=== PATIENT | female | born 1965 | race Caucasian/White ===

== ENCOUNTER → 2017-10-31 | Outpatient (CLI) | payer OTHER ==
[~2017-10-31] MED LIST: CELE-1 PO; ESTR1PAT18 TD; SIMV10TA96 PO
--- NOTE | 2017-10-31 15:14 | RADIOLOGY IMAGING REPORT ---
FACILITY: [facility] PATIENT NAME: SHARON SOLORZANO : [id number] MR: [id number] V: [id number] EXAM DATE: [id number] ORDERING PHYSICIAN: JUANIS DELACRUZ TECHNOLOGIST: Stephanie Benson PROCEDURE:BILATERAL DIGITAL SCREENING MAMMOGRAM WITH CAD ASSISTED INTERPRETATION & 3D TOMOSYNTHESIS COMPARISON:Prior mammograms 01/25/16, 08/19/12, 07/23/12. INDICATIONS:SCREENING FINDINGS: A moderate amount of fibroglandular tissue is seen throughout the breasts. The parenchymal pattern has remained stable allowing for difference in mammographic technique & patient positioning. There is no evidence of malignant appearing mass, malignant appearing calcifications or other secondary sign of malignancy in either breast. DIAGNOSTIC CATEGORY 1--NEGATIVE. RECOMMENDATIONS: ROUTINE MAMMOGRAM AND CLINICAL EVALUATION. IMPRESSION: BIRADS 1: Negative No significant abnormality is seen. Dictated by: Dee Moya M.D. on 10/31/2017 at 14:41 Transcribed by: CAROLEE on 10/31/2017 at 14:46 Approved by: Dee Moya M.D. on 10/31/2017 at 15:13 [facility]
== END ==
LOC: MAMO 03:52
PROVIDERS: ATTEND Obstetrics & Gynecology
DX: Z12.31 Encounter for screening mammogram for malignant neoplasm of breast (principal)
CPT/HCPCS: 77063; 77067

== ENCOUNTER → 2017-11-12 | Outpatient (CLI) | payer OTHER ==
--- NOTE | 2017-11-12 13:43 | RADIOLOGY IMAGING REPORT ---
[place] [facility] [place] Priscila Chiu : 1965 MR: [id number] V: [id number] EXAM DATE: ORDERING PHYSICIAN: RUFINA CUEVAS TECHNOLOGIST: Location: [facility] Patient: Priscila Chiu : 1965 Visit/Account:[id number] Date of Sevice: 11/12/2017 Exam type: VENOUS DOPP LOW RIGHT EXTREMIT History: Right leg pain and swelling Comparison: None. Findings: The right lower extremity veins were imaged including the right common femoral vein, greater saphenou s vein, superficial femoral vein, popliteal vein, posterior tibial vein anterior tibial vein and bam paras veins revealing no evidence of intraluminal thrombi. The veins were compressible and demonstrat ed augmentation IMPRESSION: 1. No sonographic evidence DVT involving the right lower extremity veins Report Dictated By: Dee Moya MD at 11/12/2017 1:37 PM Report E-Signed By: Dee Moya MD at 11/12/2017 1:38 PM WSN:[email or web address]
== END ==
LOC: US 07:17
PROVIDERS: ATTEND Family Medicine
DX: M25.561 Pain in right knee (principal); M25.461 Effusion, right knee

== ENCOUNTER 2018-05-20 02:00 | Outpatient (RCR) | payer OTHER ==
--- NOTE | 2018-05-20 08:50 | RADIOLOGY IMAGING REPORT ---
FACILITY: [facility] PATIENT NAME: Priscila Chiu : 1965 MR: [id number] V: [id number] EXAM DATE: ORDERING PHYSICIAN: RUFINA CUEVAS TECHNOLOGIST: Location: [facility] Patient: Priscila Chiu : 1965 Visit/Account:[id number] Date of Sevice: 05/20/2018 GALLBLADDER HISTORY: Epigastric pain. Nausea and vomiting. ADDITIONAL HISTORY: None. COMPARISON: None. FINDINGS: Liver: Negative. Gallbladder: There is a small amount of bright dependent sludge in gallbladder. No stones are identi fied. Negative sonographic Valdez's sign. Gallbladder wall normal measuring 2.4 mm thick. Common duct: 3.1 mm diameter. Pancreas: Partially obscured by bowel, visualized aspects unremarkable. Right kidney: Negative. Upper abdominal aorta and IVC: Patent. Ascites: None visualized. IMPRESSION: Minimal gallbladder sludge. No evidence of gallstones. Exam otherwise unremarkable. Report Dictated By: Donnie Sheehan MD at 05/20/2018 8:37 AM Report E-Signed By: Donnie Sheehan MD at 05/20/2018 8:46 AM WSN:[id number]
== END 2018-05-20 18:00 | disposition home or self-care (01) ==
LOC: US 02:00 → EDSTATUS 14:52 → US 18:00
PROVIDERS: ATTEND Family Medicine
DX: R10.13 Epigastric pain (principal); R10.11 Right upper quadrant pain; R11.0 Nausea
CPT/HCPCS: 76705

== ENCOUNTER → 2018-05-26 | Outpatient (CLI) | payer OTHER ==
[~2018-05-26] MED LIST changes: +SINCALIDE 5 MCG VIAL INJ ONE; +WATER FOR INJ,STERILE 20 ML 20 ML ONE
--- NOTE | 2018-05-26 15:15 | RADIOLOGY IMAGING REPORT ---
FACILITY: [facility] PATIENT NAME: Priscila Chiu : 1965 MR: [id number] V: [id number] EXAM DATE: ORDERING PHYSICIAN: RUFINA CUEVAS TECHNOLOGIST: [place] [facility] [place] : 1965 Visit/Account:[id number] Date of Sevice: 05/26/2018 HIDA W/CCK COMPARISON: 05/20/2018 gallbladder ultrasound HISTORY: Right upper quadrant pain with nausea. Gallbladder sludge on previous ultrasound. Epigast hali and right upper quadrant pain.. TECHNIQUE: 5.7 mCi Tc99m Mebrofenin was injected intravenously. Multiple sequential gamma camera aquiles ges of the abdomen were obtained for 60 minutes. At that time, 3.2 mcg Kinevac was injected intraveno usly and an additional 30 minutes of gamma camera imaging data was acquired. A computer-generated reg ion of interest was placed around the gallbladder and time-activity curve for the gallbladder was vick ived. The gallbladder ejection fraction was calculated. FINDINGS: Liver uptake and excretion: There is prompt liver uptake and there is overall slow/delayed hepatic c learance, with some residual parenchymal uptake noted at the end of the first hour and with residual blood pool activity indicative of delayed blood pool clearance. These findings can be seen with gene ralized hepatocellular dysfunction. Time to appearance: Bile ducts: 8 minutes. Gallbladder: 33 minutes. Duodenum: 80 minutes. Duodenal- gastric reflux / extravasation: none Post IV Kinevac: There is normal prompt contraction of the gallbladder Ejection fraction = 59 %, (normal > 35%). Patient symptoms: Nausea with CCK analog administration IMPRESSION: 1. There is delayed clearance of tracer from the blood pool which can be seen in the setting of gene ralized hepatic dysfunction. 2. Otherwise unremarkable study. The cystic and common ducts are patent. The gallbladder ejection fracture is normal at 59%. 3. Patient experienced nausea with CCK administration. Report Dictated By: Kody Vazquez at 05/26/2018 3:01 PM Report E-Signed By: Kody Vazquez at 05/26/2018 3:10 PM WSN:[email or web address]
== END ==
LOC: US 01:34
PROVIDERS: ATTEND Family Medicine
DX: R10.11 Right upper quadrant pain (principal); R11.0 Nausea
CPT/HCPCS: 78226; A9537; J2805

== ENCOUNTER → 2018-06-24 | Outpatient (CLI) | payer OTHER ==
[~2018-06-24] MED LIST changes: +BARIUM SULFATE 176 GM BTL PO ONE; +BARIUM SULFATE 340 GM POWD ONE; -SINCALIDE 5 MCG VIAL INJ ONE; -WATER FOR INJ,STERILE 20 ML 20 ML ONE
--- NOTE | 2018-06-24 17:30 | RADIOLOGY IMAGING REPORT ---
FACILITY: [facility] PATIENT NAME: Priscila Chiu : 1965 MR: [id number] V: [id number] EXAM DATE: ORDERING PHYSICIAN: RUFINA CUEVAS TECHNOLOGIST: Location: [facility] Patient: Priscila Chiu : 1965 Visit/Account:[id number] Date of Sevice: 06/24/2018 Exam type: UPPER GI SERIES W/O AIR History: Abdomen pain and nausea Comparison: None. Findings: Double contrast upper GI series was performed with thick and thin barium and air contrast. There is a small hiatal hernia with a Schatzki ring. No significant narrowing was identified within the esoph lilian. There is a small to moderate amount of gastroesophageal reflux. No esophageal mucosal erosion s were identified No abnormality of the stomach duodenal bulb or duodenal C-loop was seen. The fluo roscopy dose area product was 914.06 micro-Theodore per meter squared IMPRESSION: 1. Small hiatal hernia with a Schatzki ring. A small to moderate of gastroesophageal reflux was obs erved although no evidence of esophageal mucosal erosions or significant esophageal narrowing. The remainder the upper GI series was unremarkable Report Dictated By: Dee Moya MD at 06/24/2018 5:23 PM Report E-Signed By: Dee Moya MD at 06/24/2018 5:26 PM WSN:[email or web address]
== END ==
LOC: RAD 00:50
PROVIDERS: ATTEND Family Medicine
DX: K21.9 Gastro-esophageal reflux disease without esophagitis (principal); K44.9 Diaphragmatic hernia without obstruction or gangrene
CPT/HCPCS: 74240

== ENCOUNTER → 2018-12-02 | Outpatient (CLI) | payer OTHER ==
[~2018-12-02] MED LIST changes: -BARIUM SULFATE 176 GM BTL PO ONE; -BARIUM SULFATE 340 GM POWD ONE; +IOPAMIDOL 76% 150 ML INFUS BTL 150 ML ONE
--- NOTE | 2018-12-02 09:27 | RADIOLOGY IMAGING REPORT ---
FACILITY: [facility] [place] PATIENT NAME: Priscila Chiu : 1965 MR: [id number] V: [id number] EXAM DATE: ORDERING PHYSICIAN: YUNI GUERRA TECHNOLOGIST: Location: [facility] [place] Patient: Priscila Chiu : 1965 Visit/Account:[id number] Date of Sevice: 12/02/2018 CT ABDOMEN PELVIS W/ CON HISTORY: Abnormal hida scan, right upper quadrant pain TECHNIQUE: CT abdomen and pelvis with intravenous contrast. Contiguous axial images of the abdomen and pelvis was performed from the lung bases to the symphysis pubis. One of the following dose optimization techniques was utilized in the performance of this exam: Autom ated exposure control; adjustment of the mA and/or kV according to the patient's size; or use of an i terative reconstruction technique. Specific details can be referenced in the facility's radiology C T exam operational policy. CONTRAST: 75 cc of Isovue-370 COMPARISON: Hida scan 05/26/2018 FINDINGS: Visualized lung bases: Negative. Hepatobiliary: Liver measures 15.1 cm in craniocaudal length with mild fatty infiltration. Small hyp odensity measuring 9 mm located at the junction of the left and middle hepatic veins image 12 is like ly a small benign cyst. No concerning liver lesions. Contour of liver is smooth and there are no CT f indings to suggest cirrhosis. Gallbladder and bile ducts are unremarkable. Spleen: Negative. Adrenals: Negative. Kidneys/: Uterus is absent Pancreas: Negative. GI: There is no bowel obstruction or focal inflammation. The appendix is normal. Vessels/spaces/nodes: Negative. Bones/soft tissues: Small scattered sclerotic foci are noted in the right acetabulum, right sacrum, left iliac wing and L5 vertebral body possibly bone islands. I am not provided a history malignancy. IMPRESSION: 1. No acute pathology in the abdomen or pelvis. 2. Fatty infiltration of the liver. No imaging features to suggest cirrhosis. Report Dictated By: Serafin Kilgore MD at 12/02/2018 9:15 AM Report E-Signed By: Serafin Kilgore MD at 12/02/2018 9:22 AM WSN:[email or web address]
== END ==
LOC: CT 00:54
PROVIDERS: ATTEND Surgery
DX: R10.11 Right upper quadrant pain (principal); R10.13 Epigastric pain
CPT/HCPCS: 74177; Q9967

== ENCOUNTER 2018-12-30 00:21 | Day surgery (SDC) | payer OTHER ==
[~2018-12-30] VITALS: Ht 167.6 cm; Wt 85.3 kg
[~2018-12-30 00:21] MED LIST changes: +HYDR200T42 PO; -IOPAMIDOL 76% 150 ML INFUS BTL 150 ML ONE; +LEVO50TA80 PO; +PRED20TA6 PO
[2018-12-30 10:23] VITALS: BP 111/70
[2018-12-30] MEDS ORDERED: PROPOFOL EMUL(*) 10MG/ML 20 ML 40 ML ONE (11:16)
[2018-12-30] MEDS ORDERED: LIDOCAINE MPF 1% 5 ML VIAL ONE (11:16)
[2018-12-30] MEDS ORDERED: NORMOSOL R SOLN(*) 1000 ML BAG 1,000 ML IV PRN (11:20)
[2018-12-30] MEDS ORDERED: LIDOCAINE/SOD BICARB 8.4% SYR ID ONE (11:20)
[2018-12-30 11:31] VITALS: BP 117/71
--- NOTE | 2018-12-30 11:43 | Short(Outpt) Discharge Summary ---
Discharge Summary Reason for Hosp/Final Diag: (1) GERD (gastroesophageal reflux disease) Status: Chronic Hospital Course & Plan: EGD with biopsies completed without problems. (2) Sludge in gallbladder Status: Chronic Departure Discharge to: Home, Self Care Discharge Instructions Home Meds Reported Medications Prednisone (PREDNISONE) 20 Mg Tablet, 2.5 MG PO QDAY, TAB 12/24/18 Hydroxychloroquine Sulfate (HYDROXYCHLOROQUINE SULFATE) 200 Mg Tablet, 200 MG PO QDAY 12/24/18 Levothyroxine Sodium (SYNTHROID) 50 Mcg Tablet, 50 MCG PO QDAY, TAB 12/24/18 Estradiol (Estradiol) 1 Each Patch.tdsw, 1 PATCH TD WEEKLY 02/21/16 Simvastatin (ZOCOR) 10 Mg Tablet, 10 MG PO QODAY, TAB 02/21/16 Celecoxib (CELEBREX) 200 Mg Capsule, 200 MG PO QDAY, CAPSULE 02/05/16 Diet: Regular Activity: As Tolerated Special Instructions: Your upper endoscopy was completed without problems. I didn't find any ulcers, inflammation, or other abnormalities in your esophagus, stomach, or duodenum. I biopsied your duodenum and stomach. My office will call you in the next couple of days to schedule an appointment to see me back in my office to discuss the results of your tests with you, see how your symptoms are, and discuss further workup and/or treatment to help you feel better. Problem Qualifiers (1) GERD (gastroesophageal reflux disease): Esophagitis presence: without esophagitis Qualified Codes: K21.9 - Gastro- esophageal reflux disease without esophagitis YUNI GUERRA MD Dec 30, 2018 11:43
[2018-12-30 11:45] VITALS: BP 112/63
[2018-12-30 11:57] VITALS: BP 112/72
[2018-12-30 12:15] VITALS: BP 96/72
[2018-12-30 12:19] VITALS: BP 131/86
== END 2018-12-30 12:40 | disposition home or self-care (01) ==
LOC: OR 00:21
PROVIDERS: ATTEND Surgery
DX: R10.13 Epigastric pain (principal)
CPT/HCPCS: 36415; 43239; 83516; 87077; 88305; J2001; J2704